=== PATIENT | female | born 1950 | race Caucasian/White ===

== ENCOUNTER 2019-02-03 12:52 | Outpatient (CLI) | payer MEDICARE ==
--- NOTE | 2019-02-03 13:37 | ULT ---
US Thyroid STANDARD: 02/03/2019 12:00 AM CLINICAL INDICATION: Thyroid nodule follow-up. COMPARISON: 12/22/2017; 03/06/2016 FINDINGS: Right and left thyroid lobes are normal in size and echotexture. The right thyroid lobe measures 3.7 cm and the left thyroid lobe measures 3.6cm. There is a stable well-circumscribed nodule that is isoechoic in the left thyroid lobe measuring 1.8 cm in greatest dimension. A benign-appearing shadowing calcification is seen within this nodule. No cervical lymphadenopathy is noted. IMPRESSION: Stable left thyroid nodule. TIRADS category 3 -mildly suspicious. Current recommendations for a TIRADS category 3 lesion greater than 1.5 cm is a follow-up at 1years, 3 years and 5 years. This patient has already had stability for 3 years. A follow-up ultrasound in 2 more years is recommended to confirm continued stability.
== END 2019-02-03 12:53 | disposition home or self-care (01) ==
LOC: SCSULT 12:52
PROVIDERS: ATTEND Family Medicine
DX: E04.1 Nontoxic single thyroid nodule (principal)
CPT/HCPCS: 76536

== ENCOUNTER 2022-02-19 10:32 | Outpatient (CLI) | payer MEDICARE | END 2022-02-19 10:33 | disposition home or self-care (01) | LOC: SCSRAD 10:32 | PROVIDERS: ATTEND Family Medicine | DX: M79.642 Pain in left hand (principal) ==